=== PATIENT | male | born 1965 | race Caucasian/White ===

== ENCOUNTER 2024-10-09 09:21 | Outpatient (CLI) | payer BC, SELFPAY ==
--- NOTE | ~2024-10-09 | CT_ITS ---
EXAMINATION:CT chest high resolution wo co DATE: 10/09/2024 09:55 INDICATION: Solitary pulmonary nodule. TECHNIQUE: Computed tomography (CT) of the chest was performed without intravenous contrast. Automate d exposure control and iterative reconstruction technique were employed. The dose-length product (DLP ) was 372.86 mGy-cm. COMPARISON: Chest CT 08/06/2018 FINDINGS: There are tree-in-bud opacities and centrilobular nodules in left lower lobe, consistent wi th pneumonia. There are a few scattered nodules in other lobes measuring up to 3 mm, likely benign. N o pleural effusion. The heart size is normal. There are coronary artery calcifications. No pericardia l effusion. There is mild bilateral gynecomastia. There are bridging endplate osteophytes at multiple levels in the spine, consistent with diffuse idiopathic skeletal hyperostosis (DISH). IMPRESSION: 1. Left lower lobe pneumonia. Reviewed, dictated and finalized at location A. KER
== END 2024-10-09 09:22 | disposition home or self-care (01) ==
LOC: MICIMG 09:22
PROVIDERS: PCP Family Medicine; Visit Provider Student in an Organized Health Care Education/Training Program
DX: R91.1 Solitary pulmonary nodule (principal); R06.00 Dyspnea, unspecified; J18.9 Pneumonia, unspecified organism
CPT/HCPCS: 71250

== ENCOUNTER 2024-10-21 12:34 | Outpatient (CLI) | payer BC, SELFPAY ==
--- NOTE | ~2024-10-21 | XR_ITS ---
CHEST RADIOGRAPH, PA AND LATERAL CLINICAL HISTORY: J18.9 - Pneumonia, unspecified organism . COMPARISON: 10/06/2024. Reference is also made to a CT examination of the chest dated 10/09/2024 TECHNIQUE: PA and lateral views of the chest. FINDINGS The cardiomediastinal silhouette is unremarkable. The lungs are clear. The tree-in-bud opacification seen on previous CT examination is below the resolution of plain film e valuation. If clinical suspicion persists, cross-sectional imaging (noncontrast enhanced CT examinati on of the chest) is recommended for further evaluation. Visualized osseous structures and soft tissues are unremarkable. IMPRESSION: No focal infiltrate or effusion. The tree-in-bud opacification seen on previous CT examination is below the resolution of plain film e valuation. If clinical suspicion persists, cross-sectional imaging (noncontrast enhanced CT examinati on of the chest) is recommended for further evaluation. Reviewed, dictated and finalized at location A. F MECHANICAL ENGINEER IMPRESSION: No focal infiltrate or effusion. The tree-in-bud opacification seen on previous CT examination is below the reso lution of plain film evaluation. If clinical suspicion persists, cross-sectiona l imaging (noncontrast enhanced CT examination of the chest) is recommended for further evaluation.
== END 2024-10-21 12:35 | disposition home or self-care (01) ==
PROVIDERS: PCP Family Medicine; Visit Provider Family Medicine
DX: J18.9 Pneumonia, unspecified organism (principal)
CPT/HCPCS: 71046

== ENCOUNTER 2024-11-26 11:58 | Outpatient (CLI) | payer BC, SELFPAY ==
--- NOTE | ~2024-11-26 | XR_ITS ---
XR chest 2V Ordering provider: Amara Rodrigez MD History: 59 years Male with . R05.9 - Cough, unspecified . Comparison: None. FINDINGS: MEDIASTINUM: The cardiac silhouette is not enlarged. LUNGS: No infiltrates, effusions or pneumothorax. Small opacities seen in the lower lobe areas may be nipple shadows. OTHER: No free air under the diaphragm. IMPRESSION: No acute cardiopulmonary pathology. Reviewed, dictated and finalized at location A. EY MANAGER
== END 2024-11-26 11:59 | disposition home or self-care (01) ==
LOC: MICIMG 11:59
PROVIDERS: PCP Family Medicine; Visit Provider Family Medicine
DX: R05.9 Cough, unspecified (principal)
CPT/HCPCS: 71046

== ENCOUNTER 2024-12-15 12:38 | Outpatient (CLI) | payer BC, SELFPAY ==
[2024-12-15 13:33] LABS: Influenza A QL RT-PCR Negative (Negative); Influenza B QL RT-PCR Negative (Negative); RSV RNA, RT-PCR Negative (Negative); SARS-CoV-2 RNA PCR Negative (Negative)
== END 2024-12-15 12:39 | disposition home or self-care (01) ==
LOC: ANHLAB 12:41
PROVIDERS: PCP Family Medicine; Visit Provider Family Medicine
DX: J06.9 Acute upper respiratory infection, unspecified (principal)
CPT/HCPCS: 87637